=== PATIENT | female | born 1980 | race Caucasian/White ===

== ENCOUNTER 2020-11-02 23:38 | Emergency (ER) | payer MEDICAID, OTHER ==
[~2020-11-02] VITALS: Ht 167.6 cm; Wt 72.6 kg
[2020-11-02 23:50] VITALS: BP 147/77
--- NOTE | 2020-11-02 23:50 | NUR ---
TO BED AMBULATORY
--- NOTE | 2020-11-03 00:05 | NUR ---
40 YO/F BIB SELF W [facility] 10/24 LLQ ABDOMINAL/PELVIC PAIN X2 DAYS AND A LUMP X1 DAY. PER PATIENT PAIN WORSENS ON MOVEMENT OR WITH TOUCH. PATIENT REPORTS SHE SAW HER DOCTOR FOR A UTI YESTERDAY D/T PAINFUL URINATION AND WAS PRESCRIBED BACTRIM. PATIENT DENIES ANY FEVERS, N/V/D, OR CONSTIPATION. SLIGHT SWELLING NOTED TO LL PELVIS. BOWEL SOUNDS PRESENT THROUGHOUT, ABDOMEN ON LLQ TENDER TO TOUCH. PATIENT SITTING IN BED LOCKED IN LOWEST POSITION, X1 SIDE RAIL UP. NAD NOTED, WILL CONTINUE TO MONITOR. PMH: DENIES NKA TYLENOL: 2100
[2020-11-03] MEDS ORDERED: KETOROLAC 60 MG/2 ML VIAL IM ONE (00:15)
[2020-11-03 00:24] LABS: APPEARANCE,URINE CLEAR (CLEAR); BILIRUBIN,URINE NEGATIVE (NEGATIVE); BLOOD, URINE NEGATIVE (NEGATIVE); COLOR,URINE YELLOW (YELLOW); LEUKOCYTE ESTERASE ,URINE NEGATIVE (NEGATIVE); NITRITE, URINE NEGATIVE (NEGATIVE); PH,URINE 6.5 (5.0-9.0); UGLUCOSE NEGATIVE (NEGATIVE)
--- NOTE | 2020-11-03 01:10 | NUR ---
PATIENT REPORTING LESION TO VAGINAL AREA X2 DAYS AGO. CYST NOTED TO L LABIA.
--- NOTE | 2020-11-03 01:15 | NUR ---
Female Assembler [employer] accompanied female patient for non-invasive Pelvic/ Vaginal exam.
[2020-11-03] MEDS ORDERED: LIDOCAINE MPF 1% 10 MG/ML VIAL INJ ONE (01:45)
[2020-11-03] MEDS ORDERED: CLINDAMYCIN 600 MG/4 ML VIAL IM ONE (01:45)
--- NOTE | 2020-11-03 02:05 | NUR ---
PATIENT AMBULATED TO BATHROOM W STEADY GAIT. DENIES PAIN.
[2020-11-03] MEDS ORDERED: LIDOCAINE MPF 1% 15 ML ONE (02:19)
[2020-11-03] MEDS ORDERED: IBUP-2218 PO ×2 (02:35→02:48)
[2020-11-03] MEDS ORDERED: SULF-59 PO ×2 (02:35→02:48)
[2020-11-03 02:48] VITALS: BP 112/68
--- NOTE | 2020-11-03 02:48 | NUR ---
Patient discharged with v/s stable. Written and verbal after care instructions given and explained. Patient alert, oriented and verbalized understanding of instructions. Ambulatory with steady gait. All questions addressed prior to discharge. ID band removed. Patient advised to follow up with PMD. Rx of IBUPROFEN, BACTRIM given. Patient educated on indication of medication including possible reaction and side effects. Opportunity to ask questions provided and answered.
== END 2020-11-03 02:48 | disposition home or self-care (01) ==
LOC: MED 23:38
DX: N90.89 Other specified noninflammatory disorders of vulva and perineum (principal); L72.0 Epidermal cyst
CPT/HCPCS: 81003; 81025; 87086; 96372; 99284; J1885; J2001; J3490

== ENCOUNTER 2020-11-09 22:24 | Emergency (ER) | payer OTHER ==
[~2020-11-09] VITALS: Ht 167.6 cm; Wt 72.6 kg
[~2020-11-09 22:24] MED LIST: IBUP-2218 PO; SULF-59 PO
[2020-11-09 23:16] VITALS: BP 116/71
[2020-11-09] MEDS ORDERED: ATA25 PO (23:48)
[2020-11-10 00:04] VITALS: BP 121/78
== END 2020-11-10 00:04 | disposition home or self-care (01) ==
LOC: MED 22:24
DX: R21 Rash and other nonspecific skin eruption (principal); M79.81 Nontraumatic hematoma of soft tissue; L29.9 Pruritus, unspecified
CPT/HCPCS: 99283